=== PATIENT | female | born 1990 | race Caucasian/White ===

== ENCOUNTER 2016-11-25 00:47 | Emergency (ER) | payer MEDICAID ==
[~2016-11-25] VITALS: Ht 165.1 cm; Wt 57.6 kg
[2016-11-25 01:20] VITALS: BP 118/69
[2016-11-25] MEDS ORDERED: HYDROCODONE/APAP 5/325MG 1 EACH TABLET ONE (01:29)
[2016-11-25] MEDS ORDERED: HYDROCODONE/APAP 5/325MG 1 EACH TABLET PO ONE (01:30)
[2016-11-25] MEDS ORDERED: IBUPROFEN 400 MG TABLET ONE (02:49)
[2016-11-25] MEDS ORDERED: IBUPROFEN 400 MG TABLET PO ONE (03:00)
== END 2016-11-25 02:56 | disposition home or self-care (01) ==
LOC: ER 00:52
DX: S92.812A Other fracture of left foot, initial encounter for closed fracture (principal); W01.0XXA Fall on same level from slipping, tripping and stumbling without subsequent striking against object, initial encounter; Y92.89 Other specified places as the place of occurrence of the external cause; Y93.89 Activity, other specified; Y99.8 Other external cause status
CPT/HCPCS: 73610; 73630; 99284; A4606; Z7610